=== PATIENT | female | born 1980 | race American Indian/Alaskan Native ===

== ENCOUNTER 2017-10-19 06:03 | Day surgery (SDC) | payer OTHER ==
--- NOTE | 2017-10-16 03:36 | History and Physical Report ---
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 Past History Past Medical History: other (Lupus ) Past Surgical History: breast surgery, [employer]/uterine surgery (multiple colposcopies ), section [employer] History: abnormal PAP smear Family/Genetic History: diabetes, heart disease Social history: no significant social history, Medications and Allergies Allergies Allergy/AdvReac Type Severity Reaction Status Date / Time erythromycin base Allergy Swelling Verified 10/13/17 15:52 Penicillins Allergy Swelling Verified 10/13/17 15:52 Sulfa (Sulfonamide Allergy Itching Verified 10/13/17 15:52 Antibiotics) Home Medications Medication Instructions Recorded Confirmed Last Taken Type Albuterol Sulfate [Proventil Hfa] 2 puff IH PRN PRN 10/13/17 10/13/17 Unknown History Amitriptyline [Elavil] 25 mg PO HS 10/13/17 10/13/17 Unknown History Cetirizine HCl [ZyrTEC] 10 mg PO DAILY 10/13/17 10/13/17 Unknown History Famotidine [Famotidine] 40 mg PO HS 10/13/17 10/13/17 Unknown History Hydroxychloroquine [Plaquenil] 400 mg PO QDAY 10/13/17 10/13/17 Unknown History Review of Systems All systems: negative - Physical Exam Breasts: Positive: deferred Cardiovascular: Regular rate Lungs: Positive: Clear to auscultation Abdomen: Positive: soft (obese) Extremities: Positive: normal Results All other labs normal. Assessment and Plan A: Cervical dysplasia Persistent HPV Morbid Obesity Lupus P: Proceed with Loop Electrosurigcal Excision Procedure (LEEP) and other indicated procedures.
--- NOTE | 2017-10-18 11:50 | Anesthesia Consultation ---
Anesthesia Consult and Med Hx Date of service: 10/18/17 - Airway Anesthetic Teeth Evaluation: Good ROM Head & Neck: Adequate Mental/Hyoid Distance: Adequate Mallampati Class: Class III Intubation Access Assessment: Probably Good - Pulmonary Exam CTA: Yes - Cardiac Exam Cardiac Exam: RRR - Pre-Operative Health Status ASA Pre-Surgery Classification: ASA3 Proposed Anesthetic Plan: General - Pulmonary Hx Smoking: No Hx Respiratory Symptoms: Yes (Hx of bronchitis, finished tx couple weeks ago) Hx Sleep Apnea: No - Cardiovascular System Hx Hypertension: No (take lorsartan because of protein in urine) Hx Heart Attack/AMI: No - Central Nervous System Hx Neuromuscular Disorder: No (Lupus, stopped taking steroid over a month, had been on steroid for years) Hx Seizures: No CVA: No Hx Psychiatric Problems: No - Hematic Hx Anemia: No (persistent HPV ) - Other Systems Hx Cancer: No Hx Obesity: Yes - Additional Comments Anesthesia Medical History Comments: NAC
[2017-10-18 12:08] LABS: Hematocrit 36.5 % (30.3-42.9); Hemoglobin 11.6 gm/dl (10.1-14.3); Mean Corpuscular HGB Conc 32 % (30-34); Mean Corpuscular Volume 74 fl (79-97); Platelet Count 202 K/mm3 (140-440); Red Blood Count 4.94 M/mm3 (3.65-5.03); Red Cell Distribution Width 15.1 % (13.2-15.2)
[2017-10-18 12:10] LABS: Mean Corpuscular Hemoglobin 23 pg (28-32)
[2017-10-18 12:12] LABS: Alanine Aminotransferase 22 units/L (7-56); BUN/Creatinine Ratio 11; Blood Urea Nitrogen 8 mg/dL (7-17); Calcium 8.9 mg/dL (8.4-10.2); Hemolysis Index 8
[~2017-10-19 06:03] MED LIST: CLEOCIN 600 MG/50 mL 600 MG/50 ML BAG IV NR; GARAMYCIN 80 MG in NACL 0.9% 100 ML IV ONE; LACTATED RINGERS 1,000 ML IV SCH; PEPCID PO NR; VERSED IV NR
[2017-10-19] MEDS ORDERED: LUGOL'S SOLUTION 5% TP ONE ×2 (07:13→08:14)
[2017-10-19] MEDS ORDERED: XYLOCAINE 1% 20 mL ONE (07:13)
[2017-10-19] MEDS ORDERED: MONSEL'S TP ONE ×2 (07:13→08:33)
[2017-10-19] MEDS ORDERED: XYLOCAINE MPF 2% ONE (07:25)
[2017-10-19] MEDS ORDERED: SUBLIMAZE ONE (07:25)
[2017-10-19] MEDS ORDERED: DIPRIVAN 10 MG/ML IV ONE ×2 (07:26→09:13)
[2017-10-19] MEDS ORDERED: ZOFRAN IV PRN (07:51)
[2017-10-19] MEDS ORDERED: PERCOCET 5/325 PO PRN ×2 (07:51→10:30)
[2017-10-19] MEDS ORDERED: MORPHINE IV PRN (07:51)
[2017-10-19] MEDS ORDERED: GARAMYCIN/NS 80 MG/100 ML 100 ML IV SCH (08:00)
[2017-10-19] MEDS ORDERED: NACL 0.9% 100 ML ONE (08:03)
[2017-10-19] MEDS ORDERED: Vasostrict ONE (08:04)
[2017-10-19] MEDS ORDERED: Vasostrict IM ONE (08:11)
[2017-10-19] MEDS ORDERED: NACL 0.9% IR ONE (08:12)
[2017-10-19] MEDS ORDERED: NACL 0.9% IV ONE (08:12)
[2017-10-19] MEDS ORDERED: GELFOAM TP ONE (08:36)
--- NOTE | 2017-10-19 09:00 | Operative Report ---
Operative Report Operative Report: Date of procedure: October 19, 2017 Preoperative diagnosis: 1) Persistent HPV 2) Cervical Dysplasia 3) Lupus 4) Morbid Obesity Postoperative diagnosis: same Procedure: Loop electrosurgical excision procedure (LEEP) Surgeon: Kirstin Lincoln MD Anesthesia: General with LMA Findings: 1) Cervix with circumferential non-staining area of cervix 2) Mucin present at the endocervix EBL: 25 mL IVF: 800 mL Urine output: 100 mL, clear prior to the procedure Specimens: ectocervix, endocervix, endocervical glands to pathology Drains: None Complications: None. Counts correct x 2 Disposition: stable to PACU Indication for procedure: Pt is a 36 year old -[place] female who presents for surgical management of persistent HPV and cervical dysplasia. Operation in detail: After the risks, benefits, alternatives, and complications were explained to the patient, she gave informed consent for the procedure. She was subsequently taken to the operating room with her IV noted to be running well and placed in the dorsal supine position. SCDs were noted to be in place and functioning. General anesthesia was induced without difficulty. The patient was then placed in the dorsal lithotomy position and prepped and draped in a normal sterile fashion. A timeout was performed. The bladder was drained of 100 mL of urine prior to the start of the procedure. A coated speculum was then placed in the vagina for visualization of the cervix. The cervix was injected with a dilute pitressin solution at 12, 3 , 6, and 9 o clock. Lugol's solution was then placed on cervix with circumferential non-staining area surrounding the ectocervical os. A large loop was used to excise an ectocervical specimen. A sample of the endocervical glands that were then visible was obtained. A small loop was used to excise an endocervical specimen. All specimens were sent to pathology. Rollerball cautery was used to obtain hemostasis of the cervical bed. Monsel's solution was placed over the cervical bed. A piece of moistened gel foam was then placed over the cut surface of the cervix. All instruments were removed from the vagina and the procedure was then ended. The patient was then replaced into the dorsal supine position and extubated without difficulty. She tolerated the procedure well and was then taken to the PACU in stable condition. All counts were correct x 2.
--- NOTE | 2017-10-19 09:06 | Short Stay Summary ---
Short Stay Documentation Date of service: 10/19/17 - History H&P: dictated Social history: no significant social history, - Allergies and Medications Current Medications: Allergies erythromycin base Allergy (Verified 10/13/17 15:52) Swelling Penicillins Allergy (Verified 10/13/17 15:52) Swelling Sulfa (Sulfonamide Antibiotics) Allergy (Verified 10/13/17 15:52) Itching Home Medications Medication Instructions Recorded Confirmed Last Taken Type Albuterol Sulfate [Proventil Hfa] 2 puff IH PRN PRN 10/13/17 10/19/17 10/15/17 09:00 History Amitriptyline [Elavil] 25 mg PO HS 10/13/17 10/19/17 10/18/17 20:00 History Cetirizine HCl [ZyrTEC] 10 mg PO DAILY 10/13/17 10/19/17 Unknown History Famotidine [Famotidine] 40 mg PO HS 10/13/17 10/19/17 10/18/17 20:00 History Hydroxychloroquine [Plaquenil] 400 mg PO QDAY 10/13/17 10/13/17 Unknown History Hydroxychloroquine [Plaquenil] 400 mg PO QDAY 10/19/17 10/19/17 10/18/17 20:00 History Ibuprofen [Motrin] 800 mg PO Q8HR PRN #30 tablet 10/19/17 Unknown Rx oxyCODONE /ACETAMINOPHEN [Percocet 1 tab PO Q6HR PRN #20 tablet 10/19/17 Unknown Rx 5/325] Active Medications Famotidine (Pepcid) 20 mg PO PREOP NR Stop: 10/19/17 10:00 Last Admin: 10/19/17 06:53 Dose: 20 mg Lactated Ringer's (Lactated Ringers) 1,000 mls @ 100 mls/hr IV DIRECT DEB Last Admin: 10/19/17 06:53 Dose: 100 mls/hr Clindamycin HCl (Cleocin 600 Mg/50 Ml) 600 mg in 50 mls @ 100 mls/hr IV PREOP NR PRN Reason: Protocol Stop: 10/19/17 23:59 Midazolam HCl (Versed) 2 mg IV PREOP NR Stop: 10/19/17 23:59 Last Admin: 10/19/17 07:03 Dose: 2 mg Morphine Sulfate (Morphine) 2 mg IV Q10MIN PRN PRN Reason: Pain, Moderate (4-6) Stop: 10/19/17 12:00 Ondansetron HCl (Zofran) 4 mg IV ONCE PRN PRN Reason: Nausea And Vomiting Stop: 10/19/17 10:00 Oxycodone/Acetaminophen (Percocet 5/325) 1 tab PO ONCE PRN PRN Reason: Pain, Moderate (4-6) Stop: 10/19/17 10:00 - Brief post op/procedure progress note Date of procedure: 10/19/17 Pre-op diagnosis: Persistent HPV, Cervical Dysplasia Post-op diagnosis: same Procedure: Loop Electrosurgical Excision Procedure (LEEP) Anesthesia: GETA Findings: Findings: 1) Cervix with circumferential non-staining area of cervix 2) Mucin present at the endocervix Surgeon: BRANNON LINCOLN Estimated blood loss: minimal (25 mL) Pathology: list (ectocervix, endocervical glands, endocervix to pathology) Specimen disposition: to lab Condition: stable - Hospital course Hospital course: Pt tolerated LEEP well. She was observed in the PACU until she met discharge criteria. She will follow up in office in two weeks for follow up with Dr Lincoln. - Disposition Condition at discharge: Stable Disposition: TO HOME OR SELFCARE - Discharge Diagnoses (1) Cervical dysplasia Status: Acute (2) HPV in female Status: Acute (3) Morbid obesity Status: Acute (4) Lupus Status: Acute Qualifiers: Lupus erythematosus form: unspecified Qualified Code(s): L93.0 - Discoid lupus erythematosus Short Stay Discharge Plan Activity: other (Nothing in vagina x 4 weeks ) Weight Bearing Status: Full Weight Bearing Diet: regular Special Instructions: other (Some vaginal bleeding and yellow discharge containing black flecks is expected. However, if you are soaking through one pad per hour for two hours, call your doctor. ) Follow up with: CATHY REDDY MD [Primary Care Provider] - 7 Days Prescriptions: Ibuprofen [Motrin] 800 mg PO Q8HR PRN #30 tablet PRN Reason: Pain oxyCODONE /ACETAMINOPHEN [Percocet 5/325] 1 tab PO Q6HR PRN #20 tablet PRN Reason: Pain
[2017-10-19] MEDS ORDERED: DECADRON ONE (09:12)
[2017-10-19] MEDS ORDERED: ZOFRAN ONE (09:12)
--- NOTE | 2017-10-19 13:28 | Post Anesthesia Evaluation ---
- Post Anesthesia Evaluation Patient Participated: Yes Airway Patent: Yes Stable Respiratory Function: Yes Nausea/Vomiting: No Temp > 96.8F: Yes Pain Manageable: Yes Adequeate Hydration: Yes Anesthesia Complications: No Block Receding Appropriately: Not Applicable Patient on Ventilator: No
[2017-10-19 16:32] VITALS: BP 127/86
== END 2017-10-19 11:09 | disposition home or self-care (01) ==
LOC: OR 06:03
PROVIDERS: ATTEND Obstetrics & Gynecology
DX: N87.0 Mild cervical dysplasia (principal); A63.0 Anogenital (venereal) warts; N88.8 Other specified noninflammatory disorders of cervix uteri; M32.9 Systemic lupus erythematosus, unspecified; E66.01 Morbid (severe) obesity due to excess calories; Z68.41 Body mass index [BMI] 40.0-44.9, adult; Z88.2 Allergy status to sulfonamides; Z88.0 Allergy status to penicillin; Z88.1 Allergy status to other antibiotic agents; Z98.890 Other specified postprocedural states
CPT/HCPCS: 36415; 57460; 80053; 84703; 85027; 88305; 88307; A4649; J1100; J1580; J2250; J2405; J2704; J3010; J7120